=== PATIENT | female | born 1930 | race Two or more races ===

== ENCOUNTER 2018-11-15 10:58 | Inpatient (IN) | payer OTHER ==
[~2018-11-15] VITALS: Ht 160 cm; Wt 95.0 kg
--- NOTE | 2018-11-15 11:20 | NUR ---
AMIGA REFIERE PTE FUE ENVIA POR DR.PEDRO ARAUJO MEDICO DE [place] POR EL RESULTADO DE HEMOGLOBINA DE 5.55. LE ESTAN DANDO MAREOS CONSECUTIVOS.
[2018-11-15] MEDS ORDERED: SYNTHROID75 MCG (11:25)
[2018-11-15] MEDS ORDERED: PLAVIX75 MG (11:26)
[2018-11-15] MEDS ORDERED: ATORVASTATIN CA10 MG (11:26)
[2018-11-15] MEDS ORDERED: CILOSTAZOL100 MG (11:27)
[2018-11-15] MEDS ORDERED: ASPIR 8181 MG (11:27)
--- NOTE | 2018-11-15 12:36 | NUR ---
PACIENTE ALERTA Y ORIENTADA POR TRS ESFERAS. MS. ANDRADE ORIENTA A PACIENTE SOBRE PROCEDIMIENTO Y TX, REFIERE ENTENDER. EXTRAE MUESTRAS DE LABORATORIO CON MEDIDAS ASEPTICAS Y ADMINISTRA IVF'S CA ORDEN MEDICA.
--- NOTE | 2018-11-15 14:15 | NUR ---
SE PATRIZIA TUBOS PILOTOS PARA 4 UNIDADES DE PRBC'S FRACCIONADAS Y SE ENVIA A BANCO DE [place].
--- NOTE | 2018-11-15 18:30 | NUR ---
SE RECIBE FEMINA ALERTA Y ORIENTADA POR JOSE ESFERAS, EN CAMA CON BARANDAS SEGURAS Y ELEVADAS. ACOMPANA[place] POR MISS. SAM. SE CONECTA A MONITOR CARDIACO CON OXIMETRIA DE PULSO.. CANALIZADA X2 EN BRAZO DERECHO. RECIBIENDO0.9% NSS @ 100ML/HR, DOPAMINA 800MG/250ML @ 5ML/HR Y PRIMERA UNIDAD FRACCIONADA DE MONICA. SE MANTIENE EN OBSERVACION POR CAMBIOS.
[2018-11-30] MEDS ORDERED: CLONAZEPAM0.5 MG PO (13:38)
[2018-11-30] MEDS ORDERED: Lipitor 10MG TABLET PO (13:38)
[2018-11-30] MEDS ORDERED: FOLIC ACID1 MG PO (13:38)
[2018-11-30] MEDS ORDERED: Neurin-Sl Tablet Sl SL (13:38)
[2018-11-30] MEDS ORDERED: LEVOTHYROXINE25 MCG PO (13:38)
[2018-11-30] MEDS ORDERED: LOSARTAN POTAS100 MG PO (13:38)
== END 2018-11-30 14:12 | disposition home or self-care (01) | DRG 205 ==
LOC: ER 10:58 → ICU-2 20:10 → MEDJ 20:10 → ICU 11-20 19:53 → MEDI 11-27 15:46 → ICUI 11-27 16:55 → ICU 11-27 18:17 → MEDJ 11-27 20:25
PROVIDERS: ADMIT Internal Medicine
PROC: 30233N1 Transfusion of Nonautologous Red Blood Cells into Peripheral Vein, Percutaneous Approach (ICD-10-PCS; principal; 2018-11-15)
PROC: B246ZZZ Ultrasonography of Right and Left Heart (ICD-10-PCS; 2018-11-15)
PROC: 0T9B70Z Drainage of Bladder with Drainage Device, Via Natural or Artificial Opening (ICD-10-PCS; 2018-11-15)
PROC: BW40ZZZ Ultrasonography of Abdomen (ICD-10-PCS; 2018-11-16)
PROC: 3E0F7GC Introduction of Other Therapeutic Substance into Respiratory Tract, Via Natural or Artificial Opening (ICD-10-PCS; 2018-11-21)
PROC: 5A09457 Assistance with Respiratory Ventilation, 24-96 Consecutive Hours, Continuous Positive Airway Pressure (ICD-10-PCS; 2018-11-22)
PROC: 4A033R1 Measurement of Arterial Saturation, Peripheral, Percutaneous Approach (ICD-10-PCS; 2018-11-23)
PROC: BW24ZZZ Computerized Tomography (CT Scan) of Chest and Abdomen (ICD-10-PCS; 2018-11-25)
PROC: 4A1HXCZ Monitoring of Products of Conception, Cardiac Rate, External Approach (ICD-10-PCS; 2018-11-27)
DX: J95.84 Transfusion-related acute lung injury (TRALI) (principal); I50.43 Acute on chronic combined systolic (congestive) and diastolic (congestive) heart failure; J81.0 Acute pulmonary edema; J18.9 Pneumonia, unspecified organism; J80 Acute respiratory distress syndrome; E27.1 Primary adrenocortical insufficiency; N39.0 Urinary tract infection, site not specified; J91.8 Pleural effusion in other conditions classified elsewhere; D63.8 Anemia in other chronic diseases classified elsewhere; E78.00 Pure hypercholesterolemia, unspecified; E03.9 Hypothyroidism, unspecified; I95.9 Hypotension, unspecified; K80.20 Calculus of gallbladder without cholecystitis without obstruction; E78.5 Hyperlipidemia, unspecified; Z99.81 Dependence on supplemental oxygen; B95.2 Enterococcus as the cause of diseases classified elsewhere; I51.7 Cardiomegaly; Z88.0 Allergy status to penicillin; I95.2 Hypotension due to drugs; T45.8X5A Adverse effect of other primarily systemic and hematological agents, initial encounter; R41.0 Disorientation, unspecified

== ENCOUNTER 2019-01-10 11:16 | Outpatient (CLI) | payer OTHER ==
[~2019-01-10 11:16] MED LIST: ASPIR 8181 MG; ATORVASTATIN CA10 MG; CILOSTAZOL100 MG; CLONAZEPAM0.5 MG PO; FOLIC ACID1 MG PO; LEVOTHYROXINE25 MCG PO; LOSARTAN POTAS100 MG PO; Lipitor 10MG TABLET PO; Neurin-Sl Tablet Sl SL; PLAVIX75 MG; SYNTHROID75 MCG
== END 2019-01-10 11:27 | disposition home or self-care (01) ==
LOC: RAD 501 11:16
DX: L03.116 Cellulitis of left lower limb (principal); L97.921 Non-pressure chronic ulcer of unspecified part of left lower leg limited to breakdown of skin; I73.89 Other specified peripheral vascular diseases

== ENCOUNTER → 2019-05-16 | Outpatient (CLI) | payer OTHER | END | disposition home or self-care (01) | LOC: WOUND MED 09:42 | DX: L97.822 Non-pressure chronic ulcer of other part of left lower leg with fat layer exposed (principal) | CPT/HCPCS: 11042; G0463; A4554; A4930; A6216; A6219 ==

== ENCOUNTER → 2019-05-23 | Outpatient (CLI) | payer OTHER | END | disposition home or self-care (01) | LOC: WOUND MED 09:21 | DX: L97.822 Non-pressure chronic ulcer of other part of left lower leg with fat layer exposed (principal) | CPT/HCPCS: G0463; A4554; A4930; A6216 ==

== ENCOUNTER 2019-07-08 09:43 | Outpatient (CLI) | payer OTHER | END 2019-07-08 10:07 | disposition home or self-care (01) | LOC: NUCLEAR 09:43 | DX: M81.0 Age-related osteoporosis without current pathological fracture (principal) ==